=== PATIENT | male | born 1955 | race Caucasian/White ===

== ENCOUNTER 2024-12-26 08:14 | Observation (INO) ==
--- NOTE | 2024-11-27 13:23 | PAT Medication Instructions ---
Medication Instructions Date of Service November 27, 2024 Home Medications ascorbic acid (vitamin C) 500 mg tablet (Vitamin C) 500 mg PO DAILY aspirin 325 mg tablet (Lilian Aspirin) 325 mg PO QAM atorvastatin 40 mg tablet (Lipitor) 40 mg PO HS cholecalciferol (vitamin D3) 50 mcg (2,000 unit) capsule (Vitamin D3) 50 mcg PO DAILY losartan 50 mg tablet 50 mg PO QAM magnesium oxide 400 mg PO BID metformin 500 mg tablet,extended release 24 hr 500 mg PO BID tamsulosin 0.4 mg capsule 0.4 mg PO HS testosterone cypionate 200 mg/mL intramuscular syringe 200 mg IM UD tirzepatide 15 mg/0.5 mL subcutaneous pen injector (Mounjaro) 15 mg subcut WK vit C 250 mg-vit E 90 mg-zinc 40 mg-copper 1 [id number] capsule (PreserVision AREDS-2) 1 tab PO QAM ASK your prescriber and surgeon aspirin 325 mg tablet (Lilian Aspirin) 325 mg PO QAM testosterone cypionate 200 mg/mL intramuscular syringe 200 mg IM UD STOP taking 2 weeks before surgery vit C 250 mg-vit E 90 mg-zinc 40 mg-copper 1 [id number] capsule (PreserVision AREDS-2) 1 tab PO QAM STOP taking at least 7 days before surgery tirzepatide 15 mg/0.5 mL subcutaneous pen injector (Mounjaro) 15 mg subcut WK DO NOT take the morning of surgery ascorbic acid (vitamin C) 500 mg tablet (Vitamin C) 500 mg PO DAILY cholecalciferol (vitamin D3) 50 mcg (2,000 unit) capsule (Vitamin D3) 50 mcg PO DAILY losartan 50 mg tablet 50 mg PO QAM magnesium oxide 400 mg PO BID metformin 500 mg tablet,extended release 24 hr 500 mg PO BID Take evening before surgery atorvastatin 40 mg tablet (Lipitor) 40 mg PO HS magnesium oxide 400 mg PO BID metformin 500 mg tablet,extended release 24 hr 500 mg PO BID tamsulosin 0.4 mg capsule 0.4 mg PO HS OTHERWISE NOTHING TO EAT OR DRINK AFTER MIDNIGHT Other Notes If you have any questions please call us at [phone] or [phone] or [phone] or [phone]
--- NOTE | 2024-12-09 13:08 | Anesthesiology Consultation ---
Date of Service December 09, 2024 Assessment & Plan (1) Encounter for pre-operative examination: - Check BSG DOS - Infectious disease screening: Per assessment on 12/09/24- No known recent infectious disease contacts or current infectious disease symptoms. - Tirzepatide instructions: Patient informed by PAT to stop 7 days prior to surgery- voiced understanding. DOS 12/26/24. Advised last dose to be 12/14/24. - PCP visit (12/11/24): "medically stable for surgery under general anesthesia" Chart Review Chart Review: Acceptable Risk for Surgery and Patient seen in Pre Admission Testing Teaching & Discussion Pre-Anesthesia Teaching/Discussion Notes: Instructed NPO after midnight before surgery,except medications with 15 cc of water. Medication instructions provided according to the PAT guidelines. History Surgery Operation Date: 12/26/24 11:55 Proposed Procedures p L2-L4 Decompression and Fusion, L4-L5 Hardware Removal, Spinal Cord Monitoring - Miller Dodson, DO Height/Weight Height: 6 ft 1 in Weight: 135.2 kg Allergies Allergy/AdvReac Type Severity Reaction Status Date / Time No Known Allergies Allergy Unverified 11/26/24 11:49 Medications Home Medications Medication Instructions Recorded Confirmed Last Taken ascorbic acid (vitamin C) 500 mg 500 mg PO DAILY 11/26/24 11/26/24 Unknown tablet (Vitamin C) aspirin 325 mg tablet (Lilian 325 mg PO QAM 11/26/24 11/26/24 Unknown Aspirin) atorvastatin 40 mg tablet (Lipitor) 40 mg PO HS 11/26/24 11/26/24 Unknown cholecalciferol (vitamin D3) 50 PO BID 11/26/24 Unknown mcg (2,000 unit) capsule (Vitamin D3) losartan 50 mg tablet 50 mg PO QAM 11/26/24 11/26/24 Unknown magnesium oxide 400 mg PO BID 11/26/24 11/26/24 Unknown metformin 500 mg tablet,extended 500 mg PO BID 11/26/24 11/26/24 Unknown release 24 hr tamsulosin 0.4 mg capsule 0.4 mg PO HS 11/26/24 11/26/24 Unknown testosterone cypionate 200 mg/mL 200 mg IM UD 11/26/24 11/26/24 Unknown intramuscular syringe tirzepatide 15 mg/0.5 mL 15 mg subcut WK 11/26/24 11/26/24 Unknown subcutaneous pen injector (Mounjaro) vit C 250 mg-vit E 90 mg-zinc 40 1 tab PO QAM 11/26/24 11/26/24 Unknown mg-copper 1 [id number]-[id number] capsule (PreserVision AREDS-2) Past Medical History Medical History BPH (benign prostatic hyperplasia) CKD (chronic kidney disease), stage II Per PCP records Diabetes mellitus, type 2 Hearing deficit no hearing aid History of stroke 2016- neurologist saw evidence of old CVA (per , possibly occurred 2015 after back surgery but was not definitively diagnosed/evaluated for at that time) No residual issues/deficits Hyperlipidemia Hypertension Lumbar radiculopathy Lumbar spinal stenosis Sciatic nerve pain bilateral Sleep apnea BIPAP (compliant) Exercise / Class Metabolic Activity II 4-5 Yardwork/Stairs/Walk up hill (one FS: No CP, no SOB) Past Surgical History Surgical History History of anesthesia reaction difficulty waking History of hydrocelectomy (2002) History of lumbar fusion L4-L5 History of surgery on arm bicep tendon repair History of umbilical hernia repair History of uvulopalatopharyngoplasty Past Anesthesia History No Family Hx of Anesthesia Complications and Other (Difficulty waking) History of PONV No Hx of PONV and No Hx of Motion Sickness Social History Smoking Status: Never smoker Do You Dip or Chew Tobacco: No Hx Alcohol Use: Yes alcohol intake frequency: holidays/special occasions only Hx Substance Use: No substance use type: does not use Review of Systems Patient denies chest pain, shortness of breath, dyspnea on exertion, fever, chills, cough, wheezing, palpitations. Physical Exam Vital Signs BP 118/77 P 91 TEMP 98.3 SP02 98%RA RESP 18 Physical Full cervical extension range of motion. Full TMJ range of motion. TMD > 3.5 finger breaths Mallampati Score I Dentition: intact, + caps/crowns Lungs: clear throughout to auscultation Cardiac: regular rate and rhythm, no murmurs noted Spine: normal Carotid arteries: negative bruit Extremities: no LE edema Lab Results Anesthesia Preop Results Results Anesthesia Widget: PT 10.3 Seconds (9.0-12.0) 12/09/24 PTT 27 Seconds (21-31) 12/09/24 INR 0.9 (0.9-1.1) 12/09/24 Urine Color Yellow 12/09/24 Urine Appearance Clear (Clear) 12/09/24 Urine pH 6.0 (4.5-7.5) 12/09/24 Urine Specific [place] 1.024 (1.000-1.030) 12/09/24 Urine Protein Negative (Negative) 12/09/24 Urine Glucose (UA) Negative (Negative) 12/09/24 Urine Ketones Trace (Negative) H 12/09/24 Urine Blood Negative (Negative) 12/09/24 Urine Nitrite Negative (Negative) 12/09/24 Urine Bilirubin Negative (Negative) 12/09/24 Urine Urobilinogen Negative (Negative) 12/09/24 Urine Leukocyte Esterase Negative (Negative) 12/09/24 Blood Type B Positive 12/09/24 Antibody Screen NEGATIVE 12/09/24 Testing Laboratory Results 11/05/24 WBC 7.7 H/H 15.9/47.3 PLATELETS 264 SODIUM 137 POTASSIUM 4.9 CHLORIDE 104 CO2 28.0 BUN 20 CREATININE 1.2 GLUCOSE 138 HGBA1C 6.5% Electrocardiogram Date: 12/09/24 NSR at 79bpm. "Normal ECG" Chest X-Ray Date: 12/09/24 FINDINGS: The cardiac silhouette measures within normal limits. The hilar and mediastinal structures appear unremarkable. The lungs are clear. The osseous structures appear grossly intact. Degenerative changes of the thoracic spine. Uncovertebral degenerative changes of the cervical spine. IMPRESSION: No evidence of acute cardiopulmonary disease, communicable disease or tuberculosis.
[2024-12-26] MEDS: ACETAMINOPHEN 500 MG TAB PO SCH (09:13)
[2024-12-26] MEDS: GABAPENTIN 300 MG CAP PO SCH (09:13)
[2024-12-26] MEDS: LR 15ML/HR IV SCH (09:13)
[2024-12-26] MEDS: CeleBREX 200 MG CAP PO SCH (09:13)
[2024-12-26] MEDS ORDERED: FLUMAZENIL 0.1 MG/1 ML 10 ML VIAL IV PRN (09:14)
[2024-12-26] MEDS ORDERED: NALOXONE HCL 0.4 MG/1 ML VIAL/CARP IV PRN ×2 (09:14→16:40)
[2024-12-26] MEDS ORDERED: fentaNYL citrate PF 100 MCG/2 ML VIAL ONE ×2 (09:14)
[2024-12-26] MEDS ORDERED: ePHEDrine sulfate 50 MG/ML AMP IV PRN (09:14)
[2024-12-26] MEDS ORDERED: ONDANSETRON INJ 2 MG/ML 2 ML VIAL IV PRN ×2 (09:14→16:40)
[2024-12-26] MEDS ORDERED: HYDROmorphone INJ 1 MG/ML SYRINGE IV PRN ×2 (09:14→16:40)
[2024-12-26] MEDS ORDERED: ATROPINE SULFATE 0.1 MG/ML 10ML SYR IV PRN (09:14)
[2024-12-26] MEDS ORDERED: LABETALOL HCL IV 5 MG/ML 20ML IV PRN (09:14)
[2024-12-26] MEDS ORDERED: MIDAZOLAM HCL 1 MG/ML 2ML VIAL ONE (09:14)
[2024-12-26] MEDS ORDERED: PROMETHAZINE HCL 6.25 MG in SODIUM CHLORIDE 0.9% 50 ML IV PRN (09:14)
[2024-12-26] MEDS: LR 60ML/HR IV SCH (09:15)
[2024-12-26] MEDS ORDERED: DEXAMETHASONE SOD INJ 4 MG/ML VIAL ONE (09:15)
[2024-12-26] MEDS ORDERED: LIDOCAINE 2% 2 ML VIAL/AMP(20MG/ML) INFIL ONE (09:15)
[2024-12-26] MEDS ORDERED: PROPOFOL IV EMULSION 10 MG/ML 20 ML VIAL IV ONE (09:15)
[2024-12-26] MEDS ORDERED: ROCURONIUM BROMIDE 10 MG/ML 5 ML VIAL IV ONE ×3 (09:15→11:50)
[2024-12-26] MEDS ORDERED: ONDANSETRON INJ 2 MG/ML 2 ML VIAL ONE (09:16)
[2024-12-26] MEDS ORDERED: METOCLOPRAMIDE HCL INJ 5 MG/ML 2 ML VIAL ONE (09:16)
--- NOTE | 2024-12-26 09:28 | History & Physical Bridge Note ---
Date of Service December 26, 2024 History & Physical Bridge Note I have examined the patient, reviewed the History & Physical and in the interval since the performance of the History & Physical I have noted the following changes of clinical significance: no changes noted
--- NOTE | 2024-12-26 09:29 | History & Physical Report ---
Date of Service December 26, 2024 Assessment & Plan (1) Two-level lumbosacral spondylosis with radiculopathy: Plan: L2-L4 decompression and fusion, hardware removal L4-L5 History of Present Illness Chief Complaint: Back and leg pain Primary Care Provider: Kali De La Cruz MD This is a 69-year-old male presents for chronic persistent back and leg pain and failing course of nonoperative care is here for surgical intervention. Allergies Allergy/AdvReac Type Severity Reaction Status Date / Time No Known Allergies Allergy Unverified 12/26/24 09:04 Home Medications Medication Instructions Recorded Confirmed Type ascorbic acid (vitamin C) 500 mg 500 mg PO DAILY 11/26/24 12/26/24 History tablet (Vitamin C) aspirin 325 mg tablet (Lilian 325 mg PO QAM 11/26/24 12/26/24 History Aspirin) atorvastatin 40 mg tablet (Lipitor) 40 mg PO HS 11/26/24 12/26/24 History cholecalciferol (vitamin D3) 50 PO BID 11/26/24 History mcg (2,000 unit) capsule (Vitamin D3) losartan 50 mg tablet 50 mg PO QAM 11/26/24 12/26/24 History magnesium oxide 400 mg PO BID 11/26/24 12/26/24 History metformin 500 mg tablet,extended 500 mg PO BID 11/26/24 12/26/24 History release 24 hr tamsulosin 0.4 mg capsule 0.4 mg PO HS 11/26/24 12/26/24 History testosterone cypionate 200 mg/mL 200 mg IM UD 11/26/24 12/26/24 History intramuscular syringe tirzepatide 15 mg/0.5 mL 15 mg subcut WK 11/26/24 12/26/24 History subcutaneous pen injector (Mounjaro) vit C 250 mg-vit E 90 mg-zinc 40 1 tab PO QAM 11/26/24 12/26/24 History mg-copper 1 ea-habqzz-ohheff capsule (PreserVision AREDS-2) Past Med/Surg History Problem List (Updated 12/26/24 @ 09:28 by Miller Dodson DO) Two-level lumbosacral spondylosis with radiculopathy Encounter for pre-operative examination Medical History BPH (benign prostatic hyperplasia) CKD (chronic kidney disease), stage II Per PCP records Diabetes mellitus, type 2 Hearing deficit no hearing aid History of stroke 2016- neurologist saw evidence of old CVA (per , possibly occurred 2014 after back surgery but was not definitively diagnosed/evaluated for at that time) No residual issues/deficits Hyperlipidemia Hypertension Lumbar radiculopathy Lumbar spinal stenosis Sciatic nerve pain bilateral Sleep apnea BIPAP (compliant) Surgical History History of anesthesia reaction difficulty waking History of surgery on arm bicep tendon repair History of hydrocelectomy (2002) History of lumbar fusion L4-L5 History of umbilical hernia repair History of uvulopalatopharyngoplasty Social History Smoking Status: Never smoker Second Hand Exposure: Yes ( smokes); Do You Dip or Chew Tobacco: No; Tobacco Cessation Education Requested by Patient: No Hx Alcohol Use: Yes Hx Substance Use: No Preferred Language: Kazakh Cold Working Supervisor Required: No Beliefs That Will Affect Care: None Current Living Situation: Spouse Other Information That Helps Us Care for You: No Feels Safe at Home: Yes Safety Concerns: Feels Safe At This Time Assistive Devices: None Physical Exam Physical Exam: Patient is alert and oriented Heart regular rhythm Lungs clear
[2024-12-26] MEDS: ceFAZolin 3000MG 3,000 MG/72.5 ML BAG IV SCH (10:01)
[2024-12-26] MEDS ORDERED: PHENYLEPHRINE 100MCG/ML 5ML SYR ONE ×2 (10:21→10:51)
[2024-12-26] MEDS ORDERED: ePHEDrine sulfate 50 MG/5 ML SYR ONE (10:51)
[2024-12-26] MEDS: ceFAZolin 330 MG/ML 1 GM VIAL ONE (11:00)
[2024-12-26] MEDS: BUPIVACAINE/EPINEPHRINE 0.25% 1:200,000 30 ML VIAL ONE (11:00)
[2024-12-26] MEDS ORDERED: SUGAMMADEX SODIUM 200 MG/2 ML VIAL IV ONE (12:54)
[2024-12-26] MEDS: FLOSEAL HEMOSTATIC MATRIX 10ML TOP ONE (13:06)
--- NOTE | 2024-12-26 13:09 | Operative Report ---
Post Operative Report Pre & Post Diagnosis Operation Date: 12/26/24 10:05 Pre-Op Diagnosis: #1 lumbar spondylosis with radiculopathy #2 lumbar spondylolisthesis with radiculopathy #3 lumbar spinal stenosis #4 obesity Post-Op Diagnosis: Same I identified the patient and participated in the time-out.: Yes Procedure Operation Date: 12/26/24 10:05 Actual Procedures #1 removal of posterior instrumentation L4-L5. #2 exploration of fusion L4-5 #3 lumbar decompression with bilateral medial facetectomies and foraminotomies L1- L2, L2-L3 and L3-L4. #4 posterior spinal fusion L2-L4. #5 placed posterior instrumentation L2-L5. #6 interbody fusion L2-L3 L3-L4. #7 placement of Spira 15 x 26 mm at L2-L3 and 14 x 26 mm x 2 at L3-L4. #8 placement of locally harvested morselized autograft posterior gutters. #9 placement of infuse collagen sponge, with Koros in the posterior lateral gutters and os design interbody space. #10 placement of versa wrap over the exposed dura. Surgeon Miller Dodson, DO Primary Teacher Meliton Goldstein Estimated Blood Loss 500 Findings See Below The patient is 6 foot 1 weighing 132 kg a BMI in excess of 38. The patient's body mass did contribute to significant technical difficulty with positioning exposure and the procedure itself. This had at least 50% increased operative time. I am recommending a modifier 22. Specimens None Indications This is a 69-year-old male who presents with severe spinal stenosis radiculopathy and inability ambulate. After failing course of nonoperative care is here for surgical invention. Description of Procedure Patient is met with identified informed sent obtained. Patient was then taken to the operative suite underwent intubation placed in a prone position on the Garret table atop the Ahsan frame. All bony prominences well-padded eyes inspected to ensure no external precipice upon them. This point the lumbar spine was prepped and draped in normal sterile fashion. Sharp dissection with the assistance of Bovie cautery performed down to and exposing the lamina transverse processes of L2-L3 and instrumentation at L4-L5 bilaterally. I then proceeded move the hardware bilaterally explored the fusion mass noted to be mature and intact. I then performed a complete laminectomy of L3 including bilateral medial facetectomies and foraminotomies addressing severe spinal stenosis. Then performed a complete laminectomy of L2 with bilateral medial facetectomies and foraminotomies addressing severe neural compression and lastly partial laminectomy of L1 with bilateral medial facetectomies to address all subarticular stenosis. Pedicle screws were then placed at L2 L3-L4-L5 bi laterally with assistance of fluoroscopy the process mushtaq contoured and placed. By way of a transforaminal approach on the right discectomy of the L for L5 was performed endplates corrected to subcortical bleeding bone and a 14 x 26 mm Spira cage filled with os send bone graft tapped in position. Then proceeded to the left transforaminal region at L3-L4. Again discectomy performed. Endplates guarded to subcortical bleeding bone and a second 14 x 26 mm Spira cage filled with os design bone graft tapped in position. Then proceeded to L2-L3 and by way of transfer approach on the left complete discectomy performed. Endplates guided to subcortical bleeding bone and a 15 x 26 mm Spira cage filled with os design tapped in position. The rods were then locked in final position bilaterally. The transverse processes of L2-L3-L4 burred to subcortical bleeding bone. Infuse collagen sponge, with Koros and local autograft placed in posterior gutters. Versa wrap placed over the exposed dura. 15 round JULIAN drain inserted. The incision was then closed with 1 Vicryl the fascia 2-0 Vicryl subcutaneously and 4L for final skin closure. Steri-Strips and sterile dressing placed. Patient waken taken to PACU stable condition. Please note spinal cord monitoring was utilized out the procedure no changes noted. Meliton Hill was present at the entire surgery while the patient positioning complex portion of the surgery and final skin closure. I attest to the content of the Intraoperative Record and any orders documented therein. Any exceptions are noted below.
--- NOTE | 2024-12-26 13:18 | Fluoroscopy Report ---
FL lumbar spine 2-3V CLINICAL HISTORY: L2-L4 DECOMPRESSION COMPARISON STUDY: None FLUOROSCOPY TIME: 20 seconds FLUOROSCOPY IMAGES: 4 EXPOSURE DOSE: 20 mGy FINDINGS: Fluoroscopy was provided for lumbar metallic fusion. IMPRESSION: Intraoperative fluoroscopy. ACT 112: Negative or not required by law. Electronically signed by: Walter Gifford M.D. 12/26/2024 1:16 PM
[2024-12-26] MEDS: fentaNYL citrate PF 100 MCG/2 ML VIAL IV PRN (13:45)
--- NOTE | 2024-12-26 14:41 | Anesthesiology Progress Note ---
Date of Service December 26, 2024 Anesthesia Post Procedure Vital Signs Vital Signs: Temp Pulse Resp BP Pulse Ox O2 Del Method O2 Flow Rate 12/26/24 14:25 79 14 133/69 94 Room Air 0 12/26/24 14:10 36.5 C 83 16 137/65 95 Room Air 0 12/26/24 14:00 78 14 141/79 H 97 Oxymask 4 12/26/24 13:50 76 12 125/71 94 Oxymask 4 12/26/24 13:40 79 12 144/81 H 98 Oxymask 8 12/26/24 13:30 36.1 C L 90 13 109/73 97 Oxymask 8 12/26/24 09:15 36.7 C 86 22 139/87 98 Room Air Pain Intensity Lower Back: Pain Intensity: 4 Transfer of Care Handoff Completed per policy Notes Mental Status: alert / awake / arousable Patient Amnestic to Procedure: Yes Nausea / Vomiting: adequately controlled Pain: adequately controlled Airway Patency, RR, SpO2: stable & adequate BP & HR: stable & adequate Hydration State: stable & adequate Anesthetic Complications: no major complications apparent
[2024-12-26] MEDS: FAMOTIDINE/PF 20 MG/2 ML VIAL IV ONE (16:39)
[2024-12-26] MEDS ORDERED: HYDROmorphone INJ 0.5 MG/0.5 ML SYR IV PRN (16:40)
[2024-12-26] MEDS ORDERED: LORazepam 2 MG/1 ML VIAL IV PRN (16:40)
[2024-12-26] MEDS ORDERED: FAMOTIDINE 20 MG TAB PO PRN (16:40)
[2024-12-26] MEDS ORDERED: diphenhydrAMINE Capsule 25 MG CAP PO PRN (16:40)
[2024-12-26] MEDS ORDERED: ACETAMINOPHEN 500 MG TAB PO PRN (16:40)
[2024-12-26] MEDS ORDERED: ONDANSETRON 4 MG OD TAB PO PRN (16:40)
[2024-12-26] MEDS ORDERED: PHARMACY GLYCEMIC MGMT CONSULT PRN (16:40)
[2024-12-26] MEDS ORDERED: hydrOXYzine HCl 25 MG TAB PO PRN (16:40)
[2024-12-26] MEDS ORDERED: DO NOT ADMINISTER PNEUMOCOCCAL VACCINE PRN (16:40)
[2024-12-26] MEDS ORDERED: LORazepam 0.5 MG TAB PO PRN (16:40)
[2024-12-26] MEDS ORDERED: MAGNESIUM HYDROXIDE SUSP 30 ML UDC PO PRN (16:40)
[2024-12-26] MEDS ORDERED: PROMETHAZINE 12.5 MG/50.5 ML BAG IV PRN (16:40)
[2024-12-26] MEDS ORDERED: METOCLOPRAMIDE HCL INJ 5 MG/ML 2 ML VIAL IV PRN (16:40)
[2024-12-26] MEDS ORDERED: ALUMINUM/MAGNESIUM SUSP 30 ML UDC PO PRN (16:40)
[2024-12-26] MEDS ORDERED: DO NOT ADMINISTER FLU VACCINE PRN (16:40)
[2024-12-26] MEDS ORDERED: ACETAMINOPHEN 1,000 MG/100 ML VIAL IV PRN (16:40)
[2024-12-26] MEDS ORDERED: bisacodyL 10 MG SUPP PR PRN (16:40)
[2024-12-26] MEDS ORDERED: traMADol HCL 50 MG TABLET PO PRN (16:40)
[2024-12-26] MEDS ORDERED: SOD PHOSPHATE/SOD BIPHOSPHATE ENEMA 132 ML BTL PR PRN (16:40)
[2024-12-26] MEDS ORDERED: KETOROLAC TROMETHAMINE 15 MG/ML VIAL IV PRN (17:09)
--- NOTE | 2024-12-26 17:41 | Consultation ---
Date of Consultation December 26, 2024 Assessment & Plan (1) Two-level lumbosacral spondylosis with radiculopathy: (2) Diabetes mellitus, type 2: (3) Sleep apnea: (4) Hypertension: (5) Hyperlipidemia: Plan This is a 69 yr old M who has a significant PMH of T2DM, HTN, HLD, hx of CVA, JAIME, BPH, lumbar spinal stenosis who presents for elective lumbar procedure by Dr. Dodson. #S/P Lumbar decompression/Fusion L2-L4, POD # [address] Dodson tolerated procedure well EBL 500ml monitor hgb post op pain/wound management and therapies per Ortho #T2DM: insulin per protocol, hold metformin and recommend resuming mounjaro when discharged, glycemic pharmacy on board #HTN: bp stable, on low side post op, hold losartan, resume as able #Hx of CVA no residual def: on ASA, Statin #JAIME on Bipap #DVT ppx: SCDS, per primary FULL CODE PCP: Dr. De La Cruz Dispo: per primary Thank you for this consultation. We will follow the patient with you during their hospital stay. You can reach a member of the [facility] Hospitalist Team 21/05 via hospitalist role on tiger text Pt was seen and examined in collaboration with Dr. Day, please see addendum Supervising Physician Co-Signing Physician Notes I have seen and discussed the case with the collaborating advanced practitioner. I agree with the above H&P. I have reviewed and confirmed the patients medical history, the findings on physical examination, and the patients diagnosis and treatment plan with Huy ALEXANDRE and agree with the information documented. Mr. Montelongo is a 69 yr old M who has a significant PMH of T2DM, HTN, HLD, hx of CVA, JAIME, BPH, lumbar spinal stenosis who presents for elective lumbar procedure by Dr. Dodson. Patient doing well postoperatively. Will trend cbc/bmp. Agree with plan as above I spent a total of 15 minutes coordinating, documenting, and providing care for this patient excluding time spent in the performance of separately billed services. All of the aforementioned completed outside of collaborating with the assigned advanced practitioner for a full treatment plan. I have reviewed the advanced practitioner's documentation, and I agree with, and take responsibility for the plan of care History of Present Illness Requesting Physician: Dr. Ivory Reason for Consultation: Post op medical management Attending Physician: Miller Dodson, DO History of Present Illness This is a 69 yr old M who has a significant PMH of T2DM, HTN, HLD, hx of CVA, JAIME, BPH, lumbar spinal stenosis who presents for elective lumbar procedure by Dr. Dodson. He tolerated the procedure well. He follows with a PCP in [place]. He has hx of T2DM, A1C 6.7 recently. He is on metformin and Mounjauro. He has been on Mounjaro for over a year now and is down 50lbs. He has hx of JAIME and is compliant with CPAP. He denies any f/c/s, chest pain, sob, n/v/d, abd pain. and other family at bedside. Allergies Allergy/AdvReac Type Severity Reaction Status Date / Time No Known Allergies Allergy Unverified 12/26/24 09:04 Home Medications Medication Instructions Recorded Confirmed Type ascorbic acid (vitamin C) 500 mg 500 mg PO DAILY 11/26/24 12/26/24 History tablet (Vitamin C) aspirin 325 mg tablet (Lilian 325 mg PO QAM 11/26/24 12/26/24 History Aspirin) atorvastatin 40 mg tablet (Lipitor) 40 mg PO HS 11/26/24 12/26/24 History cholecalciferol (vitamin D3) 50 50 mcg PO BID 11/26/24 12/26/24 History mcg (2,000 unit) capsule (Vitamin D3) losartan 50 mg tablet 50 mg PO QAM 11/26/24 12/26/24 History magnesium oxide 400 mg PO BID 11/26/24 12/26/24 History metformin 500 mg tablet,extended 500 mg PO BID 11/26/24 12/26/24 History release 24 hr tamsulosin 0.4 mg capsule 0.4 mg PO HS 11/26/24 12/26/24 History testosterone cypionate 200 mg/mL 200 mg IM UD 11/26/24 12/26/24 History intramuscular syringe tirzepatide 15 mg/0.5 mL 15 mg subcut WK 11/26/24 12/26/24 History subcutaneous pen injector (Mounjaro) vit C 250 mg-vit E 90 mg-zinc 40 1 tab PO QAM 11/26/24 12/26/24 History mg-copper 1 [id number]-qodgme-ehhenj capsule (PreserVision AREDS-2) Patient History Medical History CKD (chronic kidney disease), stage II Per PCP records Lumbar spinal stenosis Hyperlipidemia Sciatic nerve pain bilateral Lumbar radiculopathy BPH (benign prostatic hyperplasia) Diabetes mellitus, type 2 Sleep apnea BIPAP (compliant) Hearing deficit no hearing aid History of stroke 2016- neurologist saw evidence of old CVA (per , possibly occurred 2015 after back surgery but was not definitively diagnosed/evaluated for at that time) No residual issues/deficits Hypertension Surgical History History of anesthesia reaction difficulty waking History of surgery on arm bicep tendon repair History of hydrocelectomy (2002) History of lumbar fusion L4-L5 History of umbilical hernia repair History of uvulopalatopharyngoplasty Social History Smoking Status: Never smoker Second Hand Exposure: Yes ( smokes); Do You Dip or Chew Tobacco: No; Tobacco Cessation Education Requested by Patient: No Hx Alcohol Use: Yes Hx Substance Use: No Preferred Language: Khmer Microwave Supervisor Required: No Beliefs That Will Affect Care: None Current Living Situation: Spouse Other Information That Helps Us Care for You: No Feels Safe at Home: Yes Safety Concerns: Feels Safe At This Time Assistive Devices: None Review of Systems Review of Systems: All systems reviewed & are unremarkable except as noted in HPI & below Physical Exam Physical Exam: Constitutional: WD/WN, vitals as above, NAD, sitting up in bed, pleasant, conversing easily Head: Normocephalic, Atraumatic Eyes: PERRL, conjunctivae normal, anicteric sclerae ENMT: external ear and nose normal, oropharynx normal Neck: trachea midline, no thyromegaly normal visual inspection Respiratory: normal respiratory effort, lungs clear to auscultation, no wheeze, rales, rhonchi. Normal insp/exp effort, no accessory muscle use Cardiovascular: RRR, no murmur, no edema Vessels: no JVD or carotid bruit Chest: normal inspection of chest Abdomen: normal bowel sounds, soft, nontender, no hepatosplenomegaly Musculoskeletal: no cyanosis or clubbing, extremities motor strength 5/5 JULIAN drain with serosang drainage Skin: no rashes, warm and dry normal turgor Neurologic: no face palsy, no dysarthria CN's II-XI intact bilaterally and moves all extremities Psychiatric: A+Ox3, euthymic affect Lymphatic: no cervical or axillary lymphadenopathy : +merchant cath Results & Data Vital Signs (Past 12 Hours) Vital Signs Temp Pulse Resp BP Pulse Ox O2 Del Method O2 Flow Rate 12/26/24 14:55 81 14 132/77 95 Nasal Cannula 2 12/26/24 14:40 76 14 122/77 96 Nasal Cannula 2 12/26/24 14:25 79 14 133/69 94 Room Air 0 12/26/24 14:10 36.5 C 83 16 137/65 95 Room Air 0 12/26/24 14:00 78 14 141/79 H 97 Oxymask 4 12/26/24 13:50 76 12 125/71 94 Oxymask 4 12/26/24 13:40 79 12 144/81 H 98 Oxymask 8 12/26/24 13:30 36.1 C L 90 13 109/73 97 Oxymask 8 12/26/24 09:15 36.7 C 86 22 139/87 98 Room Air Laboratory Results I have independently reviewed and interpreted patient's admitting labs including PTT/PT/INR, UA Diagnostic Findings Lumbar Spine X-Ray 12/26/24 10:05 FL lumbar spine 2-3V CLINICAL HISTORY: L2-L4 DECOMPRESSION COMPARISON STUDY: None FLUOROSCOPY TIME: 20 seconds FLUOROSCOPY IMAGES: 4 EXPOSURE DOSE: 20 mGy FINDINGS: Fluoroscopy was provided for lumbar metallic fusion. IMPRESSION: Intraoperative fluoroscopy. ACT 112: Negative or not required by law. Electronically signed by: Walter Gifford M.D. 12/26/2024 1:16 PM Medications Administered Current Inpatient Medications Acetaminophen (Acetaminophen 500 Mg Tab) 1,000 mg PO PREOP DEDRA Stop: 12/26/24 18:00 Last Admin: 12/26/24 09:13 Dose: 1,000 mg Acetaminophen (Acetaminophen 500 Mg Tab) 1,000 mg PO Q8H PRN PRN Reason: MILD Pain Scale 1,2,3 & Pre PT Stop: 01/25/25 16:39 Al Hydrox/Mg Hydrox/Simethicone (Aluminum/Magnesium Susp 30 Ml Udc) 30 ml PO Q6H PRN PRN Reason: Dyspepsia Stop: 01/25/25 16:39 Ascorbic Acid (Ascorbic Acid 500 Mg Tab) 500 mg PO DAILY DEDRA Stop: 01/26/25 08:59 Aspirin (Aspirin 325 Mg Ectab) 325 mg PO QAM DEDRA Stop: 01/26/25 08:59 Atorvastatin Calcium (Atorvastatin 40 Mg Tab) 40 mg PO HS DEDRA Stop: 01/25/25 20:59 Bisacodyl (Bisacodyl 10 Mg Supp) 10 mg FL DAILY PRN PRN Reason: Constipation Stop: 01/25/25 16:39 Celecoxib (Celebrex 200 Mg Cap) 200 mg PO PREOP DEDRA Stop: 12/26/24 18:00 Last Admin: 12/26/24 09:13 Dose: 200 mg Diphenhydramine HCl (Diphenhydramine Capsule 25 Mg Cap) 25 mg PO Q6H PRN PRN Reason: Allergic Rhinitis/Insomnia Stop: 01/25/25 16:39 Famotidine (Famotidine 20 Mg Tab) 20 mg PO Q12H PRN PRN Reason: Dyspepsia Stop: 01/25/25 16:39 Gabapentin (Gabapentin 300 Mg Cap) 300 mg PO PREOP DEDRA Stop: 12/26/24 18:00 Last Admin: 12/26/24 09:13 Dose: 300 mg Hydromorphone HCl (Hydromorphone Inj 0.5 Mg/0.5 Ml Syr) 0.5 mg IV Q3H PRN PRN Reason: MODERATE Pain (Scale 4,5,6) & Pre PT Stop: 01/09/25 16:39 Hydromorphone HCl (Hydromorphone Inj 1 Mg/Ml Syringe) 1 mg IV Q3H PRN PRN Reason: SEVERE Pain (Scale 7,8,9,10) Stop: 01/09/25 16:39 Hydroxyzine HCl (Hydroxyzine Hcl 25 Mg Tab) 25 mg PO Q8H PRN PRN Reason: Anxiety Stop: 01/25/25 16:39 Lactated Ringer's (Lr) 1,000 mls @ 60 mls/hr IV .[id number] DEDRA Stop: 12/26/24 22:39 Last Admin: 12/26/24 09:15 Dose: Not Given Cefazolin Sodium (Ancef 3000mg) 3,000 mg in 72.5 mls @ 130 mls/hr IV PREOP DEDRA; Protocol Stop: 12/26/24 18:00 Last Infusion: 12/26/24 17:34 Dose: Infused Acetaminophen (Ofirmev) 1,000 mg in 100 mls @ 400 mls/hr IV Q8H PRN PRN Reason: Pain Rating 1-3 & Pre PT Stop: 12/27/24 16:40 Cefazolin Sodium (Ancef 2000mg) 2,000 mg in 15 mls @ 3.75 mls/min IV Q8H DEDRA; Protocol Stop: 12/27/24 02:03 Promethazine HCl (Phenergan) 12.5 mg in 50.5 mls @ 202 mls/hr IV Q6H PRN PRN Reason: Nausea And Vomiting Stop: 01/25/25 16:39 Dexamethasone 6 mg/ Syringe 1.5 mls @ 1 mls/min IV DAILY [facility] Stop: 12/29/24 09:02 Influenza Virus Vaccine Quadrival (Do Not Administer Flu Vaccine) 1 each N/A PRN PRN PRN Reason: Notification Stop: 01/25/25 16:39 Insulin Aspart (Insulin Aspart Per Unit Charge) 0 units SC ACHS [facility] Stop: 01/25/25 17:29 Ketorolac Tromethamine (Ketorolac Tromethamine 15 Mg/Ml Vial) 15 mg IV Q6H PRN PRN Reason: Pain Lorazepam (Lorazepam 0.5 Mg Tab) 0.5 mg PO Q8H PRN PRN Reason: Sedation/Anxiety Stop: 01/25/25 16:39 Lorazepam (Lorazepam 2 Mg/1 Ml Vial) 0.5 mg IV Q8H PRN PRN Reason: Sedation/Anxiety Stop: 01/25/25 16:39 Losartan Potassium (Losartan Potassium 50 Mg Tab) 50 mg PO QAM [facility] Stop: 01/26/25 08:59 Magnesium Hydroxide (Magnesium Hydroxide Susp 30 Ml Udc) 30 ml PO Q24H PRN PRN Reason: Constipation Stop: 01/25/25 16:39 Magnesium Oxide (Magnesium Oxide 400 Mg Tab) 400 mg PO BID [facility] Stop: 01/25/25 20:59 Metoclopramide HCl (Metoclopramide Hcl Inj 5 Mg/Ml 2 Ml Vial) 10 mg IV Q6H PRN PRN Reason: Nausea &/or Vomiting Stop: 01/25/25 16:39 Miscellaneous Information (Pharmacy Glycemic Mgmt Consult) 1 each N/A UD PRN PRN Reason: Consult Stop: 01/25/25 16:39 Multivitamins/Minerals (Cerovite Adv Formula Tab) 1 tab PO QAM DEDRA Stop: 01/26/25 08:59 Naloxone HCl (Naloxone Hcl 0.4 Mg/1 Ml Vial/Carp) 0.1 mg IV Q5M PRN PRN Reason: Oversedation/Resp depression Stop: 01/25/25 16:39 Non-Formulary Medication (Testosterone Cypionate) 200 mg IM UD [facility] Stop: 01/25/25 16:39 Ondansetron HCl (Ondansetron Inj 2 Mg/Ml 2 Ml Vial) 4 mg IV Q6H PRN PRN Reason: Nausea &/or Vomiting Stop: 01/25/25 16:39 Ondansetron HCl (Ondansetron 4 Mg Od Tab) 4 mg PO Q6H PRN PRN Reason: Nausea Stop: 01/25/25 16:39 Oxycodone HCl (Oxycodone Hcl Ir 5 Mg Tab (Immediate Release)) 5 - 10 mg PO Q4H PRN PRN Reason: Pain & Pre PT Stop: 01/09/25 16:39 Pneumococcal Polyvalent Vaccine (Do Not Administer Pneumococcal Vaccine) 1 each N/A PRN PRN PRN Reason: Notification Stop: 01/25/25 16:39 Polyethylene Glycol (Polyethylene (Miralax) 17 Gm Pack) 17 gm PO Q6 DEDRA Stop: 01/26/25 05:59 Senna/Docusate Sodium (Docusate Sodium/Senna 50/8.6mg Tab) 2 tab PO HS [facility] Stop: 01/25/25 20:59 Sodium Biphosphate/Sodium Phosphate (Sod Phosphate/Sod Biphosphate Enema 132 Ml Btl) 132 ml FL ONE PRN PRN Reason: Constipation Stop: 01/25/25 16:39 Tamsulosin HCl (Tamsulosin Hcl 0.4 Mg Cap) 0.4 mg PO HS [facility] Stop: 01/25/25 20:59 Tramadol HCl (Tramadol Hcl 50 Mg Tablet) 50 - 100 mg PO Q4H PRN PRN Reason: Moderate-Severe pain & Pre PT Stop: 03/30/25 16:39 ECG Additional Comments: I have independently reviewed and interpreted patient's admitting EKG which revealed: 79 nsr, qtc 449ms
[2024-12-26] MEDS: INSULIN ASPART PER UNIT CHARGE SC SCH (18:32)
[2024-12-26] MEDS: ceFAZolin 2000MG 2,000 MG/15 ML SYR IV SCH (20:00)
[2024-12-26] MEDS: TAMSULOSIN HCL 0.4 MG CAP PO SCH (20:03)
[2024-12-26] MEDS: oxyCODONE HCL IR 5 MG TAB (IMMEDIATE RELEASE) PO PRN (20:03)
[2024-12-26] MEDS: MAGNESIUM OXIDE 400 MG TAB PO SCH (20:03)
[2024-12-26] MEDS: ATORVASTATIN 40 MG TAB PO SCH (20:03)
[2024-12-26] MEDS: DOCUSATE SODIUM/SENNA 50/8.6MG TAB PO SCH (20:03)
[2024-12-26] MEDS ORDERED: GLUCAGON FOR INJ 1 MG VIAL SQ PRN (20:30)
[2024-12-26] MEDS ORDERED: GLUCOSE 40% GEL 15 GM TUBE PO PRN (20:30)
[2024-12-26] MEDS ORDERED: DEXTROSE 50% 50 ML SYRINGE IV PRN (20:30)
[2024-12-26] MEDS ORDERED: CARBOHYDRATES FOR HYPOGLYCEMIA PO PRN (20:30)
[2024-12-26] MEDS ORDERED: GLUCOSE 10 TAB/TUBE PO PRN (20:30)
[2024-12-27 06:03] LABS: Basophils # (auto) 0.02 K/uL (0.00-0.20); Basophils % (auto) 0.1 %; Eosinophils # (auto) 0.03 K/uL (0.00-0.50); Eosinophils % (auto) 0.2 %; Hematocrit (blood only) 39.6 % (42.0-52.0); Hemoglobin 13.4 g/dl (14.0-18.0); Immature Granulocytes # (auto) 0.05 K/uL (0.01-0.20); Immature Granulocytes % (auto) 0.3 %; Lymphocytes # (auto) 1.53 K/uL (1.20-3.40); Lymphocytes % (auto) 10.6 %; Mean Corpuscular Hemoglobin 30.7 pg (25.0-34.0); Mean Corpuscular Hgb Conc 33.8 g/dL (32.0-36.0); Mean Corpuscular Volume 90.8 fL (80.0-100.0); Mean Platelet Volume 9.4 fL (9.4-12.4); Monocytes # (auto) 1.09 K/uL (0.11-0.59); Monocytes % (auto) 7.5 %; Neutrophils # (auto) 11.77 K/uL (1.40-6.50); Neutrophils % (auto) 81.3 %; Platelet Count 218 K/uL (130-400); RDW Coefficient of Variation 12.8 % (11.5-14.5); RDW Standard Deviation 42.4 fL (36.4-46.3); Red Blood Count 4.36 M/uL (4.70-6.10); White Blood Count 14.49 K/ul (4.8-10.8)
[2024-12-27] MEDS: POLYETHYLENE (MIRALAX) 17 GM PACK PO SCH (06:13)
[2024-12-27 06:20] LABS: BUN Creatinine Ratio 17.6 (10-20); Calcium 8.3 mg/dl (8.6-10.3); Creatinine Clr Calc Pharmacy 77.2 ml/min; Potassium 4.4 mmol/L (3.5-5.1)
[2024-12-27 08:02] LABS: Estimated Average Glucose 143 mg/dl; Hemoglobin A1C 6.6 % (4.5-5.6)
--- NOTE | 2024-12-27 08:18 | Orthopedic Progress Note ---
Date of Service December 27, 2024 Assessment & Plan (1) Two-level lumbosacral spondylosis with radiculopathy: Plan: This time we will initiate physical therapy monitor his JULIAN operatively discharge home in the next few days. Admission and Anticipated Discharge Date Admission Date: December 26, 2024 Subjective Back pain controlled leg pain improved Physical Exam Physical Exam: Patient is in bed. Is comfortable. Good strength testing. Results & Data Vital Signs (Past 12 Hours) Vital Signs Temp Pulse Resp BP Pulse Ox O2 Del Method 12/27/24 07:40 36.5 C 62 18 105/58 L 99 Room Air 12/27/24 05:30 36.4 C L 63 18 127/66 95 Room Air 12/27/24 01:15 36.6 C 64 18 138/56 L 96 Room Air 12/26/24 22:20 36.4 C L 73 18 119/65 97 Room Air Queries Orthopedic Spine Obesity: Yes
[2024-12-27] MEDS: ASPIRIN 325 MG ECTAB PO SCH (08:23)
[2024-12-27] MEDS: ASCORBIC ACID 500 MG TAB PO SCH (08:23)
[2024-12-27] MEDS: LOSARTAN POTASSIUM 50 MG TAB PO SCH (08:24)
[2024-12-27] MEDS: dexAMETHasone 6 MG in SYRINGE 0 ML IV SCH (08:25)
[2024-12-27] MEDS: CEROVITE ADV FORMULA TAB PO SCH (11:42)
--- NOTE | 2024-12-27 11:51 | Pharmacy Report ---
Pharmacy Glycemic Short Note 2 - Date of Service December 27, 2024 - Glycemic Short BSG Results (Last 24 hours): 12/26/24 12/26/24 12/26/24 13:34 16:42 20:28 Glucose POC Glucose 206 H 172 H 152 H 12/27/24 12/27/24 12/27/24 05:36 07:33 11:43 Glucose 152 H POC Glucose 157 H 177 H OUTPATIENT ANTIDIABETIC REGIMEN: * Mounjaro 15 mg sq weekly, metformin 500 mg bid ASSESSMENT: * 69 year old s/p surgery, POD 1 - pharmacy consulted for glycemic management. Received minimal insulin yesterday, blood sugars relatively stable. Fasting BSG 152 mg/dL - will continue with just novolog for now, continues on IV dexamethasone. Could consider low dose basal if fasting BSG elevated tomorrow AM. PLAN FOR INPATIENT GLYCEMIC CONTROL: * Hold outpatient oral diabetes medications * Basal insulin * Lantus - hold * Bolus insulin * NovoLog per scale ACHS or Q6hrs while NPO * Goal Range: Low 110 mg/dL - High 140 mg/dL * Correction Factor: 20 mg/dL/unit * Nutritional / Prandial insulin per carb ratio of 1 unit per 7 grams CHO consumed
--- NOTE | 2024-12-27 12:25 | Hospitalist Progress Note ---
Date of Service December 27, 2024 Assessment & Plan (1) Two-level lumbosacral spondylosis with radiculopathy: (2) Diabetes mellitus, type 2: (3) Sleep apnea: (4) Hypertension: (5) Hyperlipidemia: Plan This is a 69 yr old M who has a significant PMH of T2DM, HTN, HLD, hx of CVA, JAIME, BPH, lumbar spinal stenosis who presents for elective lumbar procedure by Dr. Dodson. There are no active medical changes at this time. #S/P Lumbar decompression/Fusion L2-L4, POD #[address] Dodson tolerated procedure well EBL 500ml monitor hgb post op pain/wound management and therapies per Ortho #T2DM: insulin per protocol, hold metformin and recommend resuming mounjaro when discharged, glycemic pharmacy on board #HTN: bp stable, on low side post op, hold losartan, resume as able #Hx of CVA no residual def: on ASA, Statin #JAIME on Bipap #DVT ppx: SCDS, per primary FULL CODE PCP: Dr. De LaC ruz Dispo: per primary Thank you for this consultation. We will follow the patient with you during their hospital stay. You can reach a member of the [facility] Hospitalist Team 21/05 via hospitalist role on tiger text Admission and Anticipated Discharge Date Admission Date: December 26, 2024 Subjective Reports pain is well controlled reports eagerness to have merchant removed Denies any new concerns Physical Exam Constitutional: WD/WN, vitals as above Respiratory: normal respiratory effort, lungs clear to auscultation Cardiovascular: RRR, no murmur, no edema Gastrointestinal (Abdomen): normal bowel sounds, soft, nontender, no hepatosplenomegaly Musculoskeletal: no cyanosis or clubbing, extremities motor strength 5/5 Results & Data Results & Data Vital Signs (Past 12 Hours) Vital Signs Temp Pulse Resp BP Pulse Ox O2 Del Method 12/27/24 11:45 36.4 C L 65 18 108/65 97 Room Air 12/27/24 07:40 36.5 C 62 18 105/58 L 99 Room Air 12/27/24 05:30 36.4 C L 63 18 127/66 95 Room Air 12/27/24 01:15 36.6 C 64 18 138/56 L 96 Room Air Laboratory Results Short CBC 12/27/24 Range/Units 05:36 WBC 14.49 H (4.8-10.8) K/ul Hgb 13.4 L (14.0-18.0) g/dl Hct 39.6 L (42.0-52.0) % Plt Count 218 (130-400) K/uL BMP 12/27/24 05:36 Sodium 139 Potassium 4.4 Chloride 104 Carbon Dioxide 29 BUN 22 Creatinine 1.25 Glucose 152 H Calcium 8.3 L Medications Administered Home Medications Medication Instructions Recorded Confirmed Last Taken ascorbic acid (vitamin C) 500 mg 500 mg PO DAILY 11/26/24 12/26/24 12/19/24 tablet (Vitamin C) aspirin 325 mg tablet (Lilian 325 mg PO [facility] 11/26/24 12/26/24 12/19/24 Aspirin) atorvastatin 40 mg tablet (Lipitor) 40 mg PO 11/26/24 12/26/24 12/25/24 22:00 cholecalciferol (vitamin D3) 50 50 mcg PO BID 11/26/24 12/26/24 12/20/24 mcg (2,000 unit) capsule (Vitamin D3) losartan 50 mg tablet 50 mg PO [facility] 11/26/24 12/26/24 12/25/24 08:00 magnesium oxide 400 mg PO BID 11/26/24 12/26/24 12/25/24 08:00 metformin 500 mg tablet,extended 500 mg PO BID 11/26/24 12/26/24 12/25/24 08:20 release 24 hr tamsulosin 0.4 mg capsule 0.4 mg PO 11/26/24 12/26/24 12/25/24 20:00 testosterone cypionate 200 mg/mL 200 mg IM UD 11/26/24 12/26/24 12/12/24 intramuscular syringe tirzepatide 15 mg/0.5 mL 15 mg subcut WK 11/26/24 12/26/24 12/14/24 subcutaneous pen injector (Jim) vit C 250 mg-vit E 90 mg-zinc 40 1 tab PO QAM 11/26/24 12/26/24 12/19/24 mg-copper 1 [id number] capsule (PreserVision AREDS-2) oxycodone 5 mg tablet 5 mg PO Q6H PRN pain #30 tabs 03/01/25 Unknown tramadol 50 mg tablet 50 mg PO Q6H PRN pain, moderate 12/27/24 Unknown #30 tabs Active Medications Generic Name Dose Route Start Last Admin Trade Name Jordyn PRN Reason Stop Dose Admin Ascorbic Acid 500 mg 12/27/24 09:00 12/27/24 08:23 Ascorbic Acid 500 Mg Tab PO 01/26/25 08:59 500 mg DAILY DEDRA Administration Aspirin 325 mg 12/27/24 09:00 12/27/24 08:23 Aspirin 325 Mg Ectab PO 01/26/25 08:59 325 mg QAM DEDRA Administration Atorvastatin Calcium 40 mg 12/26/24 21:00 12/26/24 20:03 Atorvastatin 40 Mg Tab PO 01/25/25 20:59 40 mg HS DEDRA Administration Dexamethasone 6 mg/ Syringe 1.5 mls @ 1 mls/min 12/27/24 09:00 12/27/24 08:25 IV 12/29/24 09:02 1 mls/min DAILY DEDRA Administration Insulin Aspart 0 units 12/26/24 17:30 12/27/24 08:28 Insulin Aspart Per Unit Charge SC 01/25/25 17:29 9 units ACHS DEDRA Administration Losartan Potassium 50 mg 12/27/24 09:00 12/27/24 08:24 Losartan Potassium 50 Mg Tab PO 01/26/25 08:59 50 mg QAM DEDRA Administration Magnesium Oxide 400 mg 12/26/24 21:00 12/27/24 08:23 Magnesium Oxide 400 Mg Tab PO 01/25/25 20:59 400 mg BID DEDRA Administration Miscellaneous 1 each 12/27/24 00:00 12/27/24 08:22 Testosterone Cypionate 200 Mg/Ml Syringe--Order Awaiting Action N/A 01/26/25 00:00 Not Given QS [facility] Multivitamins/Minerals 1 tab 12/27/24 09:00 12/27/24 11:42 Cerovite Adv Formula Tab PO 01/26/25 08:59 1 tab QAM DEDRA Administration Oxycodone HCl 5 - 10 mg 12/26/24 16:40 12/27/24 12:05 Oxycodone Hcl Ir 5 Mg Tab (Immediate Release) PO 01/09/25 16:39 10 mg Q4H PRN Administration Pain & Pre PT Polyethylene Glycol 17 gm 12/27/24 06:00 12/27/24 06:13 Polyethylene (Miralax) 17 Gm Pack PO 01/26/25 05:59 17 gm Q6 DEDRA Administration Senna/Docusate Sodium 2 tab 12/26/24 21:00 12/26/24 20:03 Docusate Sodium/Senna 50/8.6mg Tab PO 01/25/25 20:59 2 tab HS DEDRA Administration Tamsulosin HCl 0.4 mg 12/26/24 21:00 12/26/24 20:03 Tamsulosin Hcl 0.4 Mg Cap PO 01/25/25 20:59 0.4 mg HS DEDRA Administration
--- NOTE | 2024-12-28 08:36 | Hospitalist Progress Note ---
Date of Service December 28, 2024 Assessment & Plan (1) Two-level lumbosacral spondylosis with radiculopathy: (2) Diabetes mellitus, type 2: (3) Sleep apnea: (4) Hypertension: (5) Hyperlipidemia: Plan This is a 69 yr old M who has a significant PMH of T2DM, HTN, HLD, hx of CVA, JAIME, BPH, lumbar spinal stenosis who presents for elective lumbar procedure by Dr. Dodson. There are no active medical changes at this time. Patient still with relative hypotension s/p procedure, will continue to hold antihypertensives; however, doing well medically at this time #S/P Lumbar decompression/Fusion L2-L4, POD #[address] Dodson tolerated procedure well EBL 500ml, hgb stable post op pain/wound management and therapies per Ortho #T2DM: insulin per protocol, hold metformin and recommend resuming mounjaro when discharged, glycemic pharmacy on board #HTN: bp stable, on low side post op, hold losartan, resume as able #Hx of CVA no residual def: on ASA, Statin #JAIME on Bipap #DVT ppx: SCDS, per primary FULL CODE PCP: Dr. De La Cruz Dispo: per primary Thank you for this consultation. We will follow the patient with you during their hospital stay. You can reach a member of the [facility] Hospitalist Team 21/05 via hospitalist role on tiger text Admission and Anticipated Discharge Date Admission Date: December 26, 2024 Subjective evlauted patient standing at bedside reports that though he experienced some discomfort, he feels it is well controlled +flatus, no bm yet Reports good appetite and otherwise no concerns at this time Physical Exam Constitutional: WD/WN, vitals as above Respiratory: normal respiratory effort, lungs clear to auscultation Cardiovascular: RRR, no murmur, no edema Musculoskeletal: no cyanosis or clubbing, extremities motor strength 5/5 Results & Data Results & Data Vital Signs (Past 12 Hours) Vital Signs Temp Pulse Resp BP Pulse Ox O2 Del Method 12/28/24 07:28 36.7 C 68 18 102/57 L 97 Room Air Medications Administered Home Medications Medication Instructions Recorded Confirmed Last Taken ascorbic acid (vitamin C) 500 mg 500 mg PO DAILY 11/26/24 12/26/24 12/19/24 tablet (Vitamin C) aspirin 325 mg tablet (Lilian 325 mg PO QAM 11/26/24 12/26/24 12/19/24 Aspirin) atorvastatin 40 mg tablet (Lipitor) 40 mg PO HS 11/26/24 12/26/24 12/25/24 22:00 cholecalciferol (vitamin D3) 50 50 mcg PO BID 11/26/24 12/26/24 12/20/24 mcg (2,000 unit) capsule (Vitamin D3) losartan 50 mg tablet 50 mg PO QAM 11/26/24 12/26/24 12/25/24 08:00 magnesium oxide 400 mg PO BID 11/26/24 12/26/24 12/25/24 08:00 metformin 500 mg tablet,extended 500 mg PO BID 11/26/24 12/26/24 12/25/24 08:20 release 24 hr tamsulosin 0.4 mg capsule 0.4 mg PO HS 11/26/24 12/26/24 12/25/24 20:00 testosterone cypionate 200 mg/mL 200 mg IM UD 11/26/24 12/26/24 12/12/24 intramuscular syringe tirzepatide 15 mg/0.5 mL 15 mg subcut WK 11/26/24 12/26/24 12/14/24 subcutaneous pen injector (Jim) vit C 250 mg-vit E 90 mg-zinc 40 1 tab PO QAM 11/26/24 12/26/24 12/19/24 mg-copper 1 [id number] capsule (PreserVision AREDS-2) oxycodone 5 mg tablet 5 mg PO Q6H PRN pain #30 tabs 12/27/24 Unknown tramadol 50 mg tablet 50 mg PO Q6H PRN pain, moderate 12/27/24 Unknown #30 tabs Active Medications Generic Name Dose Route Start Last Admin Trade Name Freq PRN Reason Stop Dose Admin Ascorbic Acid 500 mg 12/27/24 09:00 12/28/24 08:01 Ascorbic Acid 500 Mg Tab PO 01/26/25 08:59 500 mg DAILY DEDRA Administration Aspirin 325 mg 12/27/24 09:00 12/28/24 08:01 Aspirin 325 Mg Ectab PO 01/26/25 08:59 325 mg QAM DEDRA Administration Atorvastatin Calcium 40 mg 12/26/24 21:00 12/27/24 19:25 Atorvastatin 40 Mg Tab PO 01/25/25 20:59 40 mg HS DEDRA Administration Dexamethasone 6 mg/ Syringe 1.5 mls @ 1 mls/min 12/27/24 09:00 12/28/24 08:02 IV 12/29/24 09:02 1 mls/min DAILY DEDRA Administration Insulin Aspart 0 units 12/26/24 17:30 12/28/24 08:02 Insulin Aspart Per Unit Charge SC 01/25/25 17:29 8 units ACHS DEDRA Administration Losartan Potassium 50 mg 12/27/24 09:00 12/27/24 08:24 Losartan Potassium 50 Mg Tab PO 01/26/25 08:59 50 mg QAM DEDRA Administration Magnesium Oxide 400 mg 12/26/24 21:00 12/28/24 08:01 Magnesium Oxide 400 Mg Tab PO 01/25/25 20:59 400 mg BID DEDRA Administration Miscellaneous 1 each 12/27/24 00:00 12/28/24 08:01 Testosterone Cypionate 200 Mg/Ml Syringe--Order Awaiting Action N/A 01/26/25 00:00 Not Given QS DEDRA Multivitamins/Minerals 1 tab 12/27/24 09:00 12/28/24 08:01 Cerovite Adv Formula Tab PO 01/26/25 08:59 1 tab QAM DEDRA Administration Oxycodone HCl 5 - 10 mg 12/26/24 16:40 12/28/24 05:14 Oxycodone Hcl Ir 5 Mg Tab (Immediate Release) PO 01/09/25 16:39 10 mg Q4H PRN Administration Pain & Pre PT Polyethylene Glycol 17 gm 12/27/24 06:00 12/28/24 05:14 Polyethylene (Miralax) 17 Gm Pack PO 01/26/25 05:59 17 gm Q6 DEDRA Administration Senna/Docusate Sodium 2 tab 12/26/24 21:00 12/27/24 19:25 Docusate Sodium/Senna 50/8.6mg Tab PO 01/25/25 20:59 2 tab HS DEDRA Administration Tamsulosin HCl 0.4 mg 12/26/24 21:00 12/27/24 19:26 Tamsulosin Hcl 0.4 Mg Cap PO 01/25/25 20:59 0.4 mg HS DEDRA Administration
--- NOTE | 2024-12-28 09:41 | Orthopedic Progress Note ---
Date of Service December 28, 2024 Assessment & Plan (1) Two-level lumbosacral spondylosis with radiculopathy: Plan: At this time we will continue physical therapy monitor his JULIAN output anticipate discharge home tomorrow. Admission and Anticipated Discharge Date Admission Date: December 26, 2024 Subjective Back pain is controlled leg pain markedly improved Physical Exam Physical Exam: Patient is in the chair at bedside. Is comfortable. Good strength testing. Results & Data Vital Signs (Past 12 Hours) Vital Signs Temp Pulse Resp BP Pulse Ox O2 Del Method 12/28/24 07:28 36.7 C 68 18 102/57 L 97 Room Air Queries Orthopedic Spine Obesity: Yes
[2024-12-29 07:04] VITALS: PULSE 60; O2SAT 99
[2024-12-29 07:46] VITALS: BP 110/64; RESP 18; TEMP 98.4
--- NOTE | 2024-12-29 08:46 | Hospitalist Progress Note ---
Date of Service December 29, 2024 Assessment & Plan (1) Two-level lumbosacral spondylosis with radiculopathy: (2) Diabetes mellitus, type 2: (3) Sleep apnea: (4) Hypertension: (5) Hyperlipidemia: Plan This is a 69 yr old M who has a significant PMH of T2DM, HTN, HLD, hx of CVA, JAIME, BPH, lumbar spinal stenosis who presents for elective lumbar procedure by Dr. Dodson. There are no active medical changes at this time. Patient still with relative hypotension s/p procedure, will continue to hold antihypertensives, patient instructed on blood pressure checking and when to resume bp meds ; however, doing well medically at this time #S/P Lumbar decompression/Fusion L2-L4, POD #[address] Dodson tolerated procedure well EBL 500ml, hgb stable post op pain/wound management and therapies per Ortho #T2DM: insulin per protocol, resume home regimen upon d/c #HTN: bp stable, on low side post op, hold losartan discussed resuming when SBP >130, patient verbalized understanding #Hx of CVA no residual def: on ASA, Statin #JAIME on Bipap #DVT ppx: SCDS, per primary FULL CODE PCP: Dr. De La Cruz Dispo: per primary Thank you for this consultation. We will follow the patient with you during their hospital stay. You can reach a member of the [facility] Hospitalist Team 21/05 via hospitalist role on tiger text Admission and Anticipated Discharge Date Admission Date: December 26, 2024 Subjective NAEO Reports feeling well overall and denies any uncontrolled symptoms, feels BM may happen today--passing flatus, increase appetite ready for discharge Physical Exam Constitutional: WD/WN, vitals as above Respiratory: normal respiratory effort, lungs clear to auscultation Cardiovascular: RRR, no murmur, no edema Gastrointestinal (Abdomen): normal bowel sounds, soft, nontender, no hepatosplenomegaly Musculoskeletal: no cyanosis or clubbing, extremities motor strength 5/5 Results & Data Results & Data Vital Signs (Past 12 Hours) Vital Signs Temp Pulse Pulse Resp BP BP Pulse Ox 12/29/24 07:44 36.9 C 60 61 18 110/64 99 12/29/24 07:03 36.5 C 60 16 134/69 99 12/28/24 20:50 O2 Del Method 12/29/24 07:44 Room Air 12/29/24 07:03 Room Air 12/28/24 20:50 Room Air, BiPAP Medications Administered Home Medications Medication Instructions Recorded Confirmed Last Taken ascorbic acid (vitamin C) 500 mg 500 mg PO DAILY 11/26/24 12/26/24 12/19/24 tablet (Vitamin C) aspirin 325 mg tablet (Lilian 325 mg PO QA 11/26/24 12/26/24 12/19/24 Aspirin) atorvastatin 40 mg tablet (Lipitor) 40 mg PO HS 11/26/24 12/26/24 12/25/24 22:00 cholecalciferol (vitamin D3) 50 50 mcg PO BID 11/26/24 12/26/24 12/20/24 mcg (2,000 unit) capsule (Vitamin D3) losartan 50 mg tablet 50 mg PO [facility] 11/26/24 12/26/24 12/25/24 08:00 magnesium oxide 400 mg PO BID 11/26/24 12/26/24 12/25/24 08:00 metformin 500 mg tablet,extended 500 mg PO BID 11/26/24 12/26/24 12/25/24 08:20 release 24 hr tamsulosin 0.4 mg capsule 0.4 mg PO 11/26/24 12/26/24 12/25/24 20:00 testosterone cypionate 200 mg/mL 200 mg IM UD 11/26/24 12/26/24 12/12/24 intramuscular syringe tirzepatide 15 mg/0.5 mL 15 mg subcut WK 11/26/24 12/26/24 12/14/24 subcutaneous pen injector (Jim) vit C 250 mg-vit E 90 mg-zinc 40 1 tab PO QAM 11/26/24 12/26/24 12/19/24 mg-copper 1 [id number] capsule (PreserVision AREDS-2) oxycodone 5 mg tablet 5 mg PO Q6H PRN pain #30 tabs 12/27/24 Unknown tramadol 50 mg tablet 50 mg PO Q6H PRN pain, moderate 12/27/24 Unknown #30 tabs Active Medications Generic Name Dose Route Start Last Admin Trade Name Freq PRN Reason Stop Dose Admin Ascorbic Acid 500 mg 12/27/24 09:00 12/28/24 08:01 Ascorbic Acid 500 Mg Tab PO 01/26/25 08:59 500 mg DAILY DEDRA Administration Aspirin 325 mg 12/27/24 09:00 12/28/24 08:01 Aspirin 325 Mg Ectab PO 01/26/25 08:59 325 mg QAM DEDRA Administration Atorvastatin Calcium 40 mg 12/26/24 21:00 12/28/24 20:47 Atorvastatin 40 Mg Tab PO 01/25/25 20:59 40 mg HS DEDRA Administration Dexamethasone 6 mg/ Syringe 1.5 mls @ 1 mls/min 12/27/24 09:00 12/28/24 08:02 IV 12/29/24 09:02 1 mls/min DAILY DEDRA Administration Insulin Aspart 0 units 12/26/24 17:30 12/28/24 20:49 Insulin Aspart Per Unit Charge SC 01/25/25 17:29 Not Given ACHS DEDRA Losartan Potassium 50 mg 12/27/24 09:00 12/27/24 08:24 Losartan Potassium 50 Mg Tab PO 01/26/25 08:59 50 mg QAM DEDRA Administration Magnesium Oxide 400 mg 12/26/24 21:00 12/28/24 20:47 Magnesium Oxide 400 Mg Tab PO 01/25/25 20:59 400 mg BID DEDRA Administration Miscellaneous 1 each 12/27/24 00:00 12/29/24 08:14 Testosterone Cypionate 200 Mg/Ml Syringe--Order Awaiting Action N/A 01/26/25 00:00 Not Given QS DEDRA Multivitamins/Minerals 1 tab 12/27/24 09:00 12/28/24 08:01 Cerovite Adv Formula Tab PO 01/26/25 08:59 1 tab QAM DEDRA Administration Oxycodone HCl 5 - 10 mg 12/26/24 16:40 12/29/24 06:06 Oxycodone Hcl Ir 5 Mg Tab (Immediate Release) PO 01/09/25 16:39 10 mg Q4H PRN Administration Pain & Pre PT Polyethylene Glycol 17 gm 12/27/24 06:00 12/29/24 06:07 Polyethylene (Miralax) 17 Gm Pack PO 01/26/25 05:59 17 gm Q6 DEDRA Administration Senna/Docusate Sodium 2 tab 12/26/24 21:00 12/28/24 20:47 Docusate Sodium/Senna 50/8.6mg Tab PO 01/25/25 20:59 2 tab HS DEDRA Administration Tamsulosin HCl 0.4 mg 12/26/24 21:00 12/28/24 20:47 Tamsulosin Hcl 0.4 Mg Cap PO 01/25/25 20:59 0.4 mg HS DEDRA Administration
--- NOTE | 2024-12-29 09:05 | Pharmacy Report ---
Pharmacy Glycemic Short Note 2 - Date of Service December 29, 2024 - Glycemic Short BSG Results (Last 24 hours): 12/28/24 12/28/24 12/28/24 12:00 16:31 20:37 POC Glucose 209 H 184 H 96 12/29/24 07:05 POC Glucose 144 H OUTPATIENT ANTIDIABETIC REGIMEN: * Mounjaro 15 mg SC weekly * Metformin 500 mg PO bid HbA1c: 6.6% (12/27/24) ASSESSMENT: 12/29: * Adonis received 27 units of insulin yesterday, all bolus. BSGs were: 525-251-383-96 mg/dL. Lunchtime BSG taken while patient was eating so likely a false elevation. * Received last dose of Dexamethasone 6 mg IV this AM. Continues to tolerated T2DM diet. Possible discharge to home today per surgeon. * Fasting BSG remains acceptable at 144 mg/dL this AM. Will continue to hold off on basal insulin. * No changes to Novolog regimen at this time. 12/27: * 69 year old s/p surgery, POD 1 - pharmacy consulted for glycemic management. Received minimal insulin yesterday, blood sugars relatively stable. Fasting BSG 152 mg/dL - will continue with just novolog for now, continues on IV dexamethasone. Could consider low dose basal if fasting BSG elevated tomorrow AM. PLAN FOR INPATIENT GLYCEMIC CONTROL: * Hold outpatient oral diabetes medications * Basal insulin * None * Bolus insulin * NovoLog per scale ACHS or Q6hrs while NPO * Goal Range: Low 110 mg/dL - High 140 mg/dL * Correction Factor: 20 mg/dL/unit * Nutritional / Prandial insulin per carb ratio of 1 unit per 7 grams CHO consumed
--- NOTE | 2024-12-29 10:17 | Discharge Summary ---
Date of Service December 29, 2024 Admission HPI Per Admitting Provider This is a 69-year-old male presents for chronic persistent back and leg pain and failing course of nonoperative care is here for surgical intervention. Principal Diagnosis Lumbar spondylosis with radiculopathy Discharge Data Allergies Allergy/AdvReac Type Severity Reaction Status Date / Time No Known Allergies Allergy Unverified 12/26/24 09:04 Consultations 12/26/24 16:40 Consult Hospitalist Routine Procedures Performed Operation Date: 12/26/24 10:05 Actual Procedures p L2-L4 Decompression and Fusion, Spinal Cord Monitoring(Not Applicable) - Miller Dodson DO s L4-L5 Hardware Removal(Not Applicable) - Miller Dodson DO Ordered Studies 12/26/24 10:05 FL lumbar spine 2-3V Routine Hospital Course (1) Two-level lumbosacral spondylosis with radiculopathy: Patient underwent lumbar decompression fusion tolerated procedure well was taken to orthopedic floor postoperatively. He has been ambulate the halls without difficulty. Extracted testing. JULIAN drain decreasing. Pain control. Subsidy discharged home. Discharge orders instructions from the chart for further review. Total Time Total Time Spent Total Time Spent (In Minutes): 20 minutes Discharge Plan Discharge Items Patient Disposition: Home - Self-Care Reason For Visit: Lumbar Region Spinal Stenosis with Neurogenic Anayeli Discharge Diagnosis: Lumbar spondylosis with radiculopathy Activity: As commented below Non-emergency contact: Primary Care Provider Call non-emergency contact if: you have any medication questions Follow-up/Referrals: Kali De La Cruz MD [Primary Care Provider] - Diet: Regular Addtl Attending Provider Instructions: ACTIVITY RECOMMENDATIONS: SELF CARE INSTRUCTIONS AFTER THORACIC/LUMBAR FUSIONS 1. You may walk to your tolerance. It is good exercise for your legs and back. Expect some back and intermittent leg aches and pains. 2. You may perform "counter-top" level activities (make a sandwich, soila with a project, etc.). 3. No bending or lifting of more than 10 pounds or back twisting of any nature (roll like a log when turning in bed). 4. You may ride in a car for 20-30 minutes at a time. No driving until after your first visit with your doctor. 5. Frequent changes of position and restricting sitting to 30 minutes at a time will help limit the amount of back spasms and stiffness you may experience. 6. You may discontinue the use of ambulatory aids (cane, crutches, etc.) once your strength and confidence allow. 7. You may aboriginal ceremonial celebrant the shower and let water strike your incision when you ar rive home at least once daily. Do not take a tub bath, sit in a hot tub or go into a swimming pool until after your first recheck in the office. 8. You may resume previous diet. SPECIAL CARE INSTRUCTIONS: VERY IMPORTANT TO READ AND REVIEW A. Your surgical incision has been closed with a cosmetic suture under the skin that will dissolve in about 6 weeks. In 14 days, you can use a pair of clean scissors and cut the suture that is left outside of the skin at the ends of your incision. 1. The small skin tapes can be removed 7 days after surgery if they have not fallen off by that point. 2. You may keep the wound open to air as much as possible to promote healing after post-op day number 5 unless told otherwise by your doctor. 3. If you think the wound looks like it is becoming infected (redness or worsening drainage) and/or you are experiencing fever, chill or worsening back pain and muscle spasms, contact the office so that we may evaluate you as soon as possible. B. Complications are uncommon, but please contact us if you have any signs or symptoms of: 1. wound infection (fever higher than 102.5 degrees F, redness, separation of wound, drainage, or increasing pain from the incision) 2. blood clots in legs (pain, swelling, redness and warmth in legs) 3. urinary tract infection (fever higher than 102.5 degrees F, burning upon urination or increased frequency of urination) 4. nerve problems (inability to walk on your toes or heels, numbness, loss of bowel or bladder control) 5. any other symptoms that concern you C. Please call the office at if you have any concerns or questions about your operation or recovery. D. No smoking! Smoking drastically decreases the chance of a solid fusion. E. Do not take any anti-inflammatory medications (Indocin, Advil, Motrin, Aspirin, Naprosyn, etc.) as these may inhibit the chance of a solid fusion. Tylenol is okay to take for pain. MANAGING PAIN AFTER SPINAL SURGERY 1. Narcotic medication is intended for short-term use and will be provided for surgical pain. Surgical pain usually lasts for a period of 4-6 weeks. Narcotic medication includes Percocet, Vicodin, Darvocet, Tylenol #3 or Lortab. 2. Longer-term pain is more appropriately treated with non-narcotic medication such as Tylenol ES. 3. Muscle spasm is not appropriately treated with narcotics. Muscle relaxers such as Soma, Flexeril or Skelaxin can be used along with Tylenol ES. 4. Remember that we all live with some "aches and pains". This is not unusual or uncommon after an injury or as we get older. a. Back pain is expected and may include muscle spasms for 4 to 6 weeks after surgery. The pain should gradually improve. If the pain worsens for no apparent reason, please contact the office. b. Intermittent leg pain may also be experienced and should not be concerned about unless it worsens for no apparent reason. If so, please contact the office. 5. We will provide appropriate medication within the normal guidelines of their prescribed use. We will also be very cautious and aware of potential abuse and extended duration of patients' medication needs. a. Pain medications are for your comfort and to assist with sleep and rest so that the tissue can heal. They are not provided in order to return to normal activity and should not be used through the day. To do so or worsening pain at night can result from ongoing tissue damage and development of tolerance to the prescribed medicine. 6. Please allow 2-3 days to process refills. Prescriptions will not be mailed but must be picked up at the office. FOLLOW UP VISIT: Keep your scheduled follow-up appointment. Any questions, please call the office at . Addtl Tone Regulator Provider Instructions: Your blood pressure has been low normal after your surgery. That is likely due to multiple factors, including pain medicine and recovery. Please obtain a blood pressure monitor and check your blood pressure in the mornings. If your blood pressure is greater than 130 systolic (top number), please resume your Losartan, or resume as directed by your PCP Pending Studies at Discharge: No Stand-Alone Forms: [employer], Smoking Cessation Medications and DC Order Prescriptions: New tramadol 50 mg tablet 50 mg PO Q6H PRN (Reason: pain, moderate) Qty: 30 0RF oxycodone 5 mg tablet 5 mg PO Q6H PRN (Reason: pain) Qty: 30 0RF Continued atorvastatin [Lipitor] 40 mg Tablet 40 mg PO HS aspirin [Lilian Aspirin] 325 mg Tablet 325 mg PO QAM ascorbic acid (vitamin C) [Vitamin C] 500 mg Tablet 500 mg PO DAILY tamsulosin 0.4 mg Capsule 0.4 mg PO HS metformin 500 mg Tablet Extended Release 24 Hr 500 mg PO BID cholecalciferol (vitamin D3) [Vitamin D3] 50 mcg (2,000 unit) Capsule 50 mcg PO BID PreserVision AREDS-2 250-90-40-1 mg Capsule 1 tab PO QAM magnesium oxide 400 mg magnesium Tablet 400 mg PO BID Mounjaro 15 mg/0.5 mL Pen Injector 15 mg SUBCUT WK Patient Comments: Sundays testosterone cypionate 200 mg/mL Syringe 200 mg IM UD Patient Comments: every two weeks Held losartan 50 mg Tablet 50 mg PO QAM Hold Instructions: Until blood pressure is greater than 130 systolic (top number) Discharge Orders: Discharge Order (Routine); Ordered 12/29/24 Ordered By: Miller Cuevas/Other Patient Handouts: Blood Pressure Check Steps Admission Data Admit Date/Time: 12/26/24 13:16 Attending Provider: Miller Dodson Admit Provider: Miller Dodson Primary Care Provider: Kali De La Cruz Other Providers: Fannie De La Garza
== END 2024-12-29 12:44 | disposition home or self-care (01) | DRG 427 ==
LOC: ASU 08:14 → 3E 13:16 → INTOOBSV 13:16